=== PATIENT | female | born 1940 | race Caucasian/White ===

== ENCOUNTER 2024-10-18 18:41 | Emergency (ER) | payer MEDICARE, BC ==
[2024-10-18 19:19] LABS: BASOPHILS PERCENT AUTO 0.1 % (0.2-1.2); EOSINOPHILS PERCENT AUTO 0.1 % (0.0-4.0); HEMATOCRIT 39.5 % (33.0-47.0); HEMOGLOBIN 14.2 g/dL (12.0-16.0); IMMATURE GRAN ABSOLUTE AUTO 0.03 x10^3/uL (0.00-0.07); LYMPHOCYTES PERCENT AUTO 10.3 % (25.0-50.0); MEAN CORPUSCULAR HEMOGLOBIN 31.5 pg (26.0-32.0); MEAN CORPUSCULAR HGB CONC 35.9 g/dL (32.0-36.0); MEAN CORPUSCULAR VOLUME 87.6 fL (78.0-93.0); MONOCYTES ABSOLUTE AUTO 0.2 x10^3/uL (0.0-0.8); MONOCYTES PERCENT AUTO 2.2 % (2.0-11.0); NEUTROPHILS ABSOLUTE AUTO 8.2 x10^3/uL (1.8-7.7); PLATELET COUNT,PLT 184 x10^3/uL (130-400); RED BLOOD CELL COUNT 4.51 x10^6/uL (4.00-5.50); WHITE BLOOD CELL COUNT,WBC 9.4 x10^3/uL (4.0-10.0)
[2024-10-18 19:40] LABS: A/G RATIO 0.9; ALBUMIN 3.7 g/dL (3.4-5.0); ANION GAP 12.3 mmol/L (5-15); BILIRUBIN TOTAL 0.5 mg/dL (0.2-1.0); CALCIUM 10.7 mg/dL (8.5-10.1); EST CRCL DRUG DOSING (CG) 29.54 mL/min; POTASSIUM,K 4.3 mmol/L (3.5-5.1); PROTEIN TOTAL,TP 7.8 g/dL (6.4-8.2)
[2024-10-18] MEDS: Sodium Chloride 0.9% 1,000 ML IV ONE (19:56)
[2024-10-18 20:21] VITALS: BP 148/59; PULSE 50
== END 2024-10-18 20:35 | disposition home or self-care (01) ==
LOC: VM.ED 18:41
DX: E87.1 Hypo-osmolality and hyponatremia (principal); E86.0 Dehydration; Z79.82 Long term (current) use of aspirin; Z79.890 Hormone replacement therapy; Z79.899 Other long term (current) drug therapy
CPT/HCPCS: 80053; 85025; 96360; 99284; J7030

== ENCOUNTER 2024-10-19 19:16 | Inpatient (IN) | payer MEDICARE, BC ==
[2024-10-19 19:42] LABS: BASOPHILS PERCENT AUTO 0.1 % (0.2-1.2); EOSINOPHILS PERCENT AUTO 0.3 % (0.0-4.0); HEMATOCRIT 38.2 % (33.0-47.0); HEMOGLOBIN 13.5 g/dL (12.0-16.0); IMMATURE GRAN ABSOLUTE AUTO 0.03 x10^3/uL (0.00-0.07); LYMPHOCYTES ABSOLUTE AUTO 0.9 x10^3/uL (1.0-4.8); LYMPHOCYTES PERCENT AUTO 11.8 % (25.0-50.0); MEAN CORPUSCULAR HEMOGLOBIN 31.2 pg (26.0-32.0); MEAN CORPUSCULAR HGB CONC 35.3 g/dL (32.0-36.0); MEAN CORPUSCULAR VOLUME 88.2 fL (78.0-93.0); MONOCYTES ABSOLUTE AUTO 0.2 x10^3/uL (0.0-0.8); MONOCYTES PERCENT AUTO 2.7 % (2.0-11.0); NEUTROPHILS ABSOLUTE AUTO 6.3 x10^3/uL (1.8-7.7); NEUTROPHILS PERCENT AUTO 84.7 % (50.0-80.0); PLATELET COUNT,PLT 187 x10^3/uL (130-400); RED BLOOD CELL COUNT 4.33 x10^6/uL (4.00-5.50); WHITE BLOOD CELL COUNT,WBC 7.4 x10^3/uL (4.0-10.0)
[2024-10-19 20:04] LABS: A/G RATIO 0.88; ALBUMIN 3.5 g/dL (3.4-5.0); BILIRUBIN TOTAL 0.6 mg/dL (0.2-1.0); CALCIUM 10.1 mg/dL (8.5-10.1); EST CRCL DRUG DOSING (CG) 29.54 mL/min; POTASSIUM,K 4.6 mmol/L (3.5-5.1); PROTEIN TOTAL,TP 7.5 g/dL (6.4-8.2)
[2024-10-19 20:07] LABS: ANION GAP 14.6 mmol/L (5-15)
[2024-10-19 20:08] LABS: LACTIC ACID 1.3 mmol/L (0.4-2.0)
[2024-10-19] MEDS ORDERED: Sodium Chloride 0.9% 10 ML Syringe FLUSH PRN (20:31)
[2024-10-19] MEDS: Sodium Chloride 0.9% 1,000 ML IV SCH (20:50)
[2024-10-19] MEDS ORDERED: Acetaminophen 325 MG Tab PO PRN (22:59)
[2024-10-19] MEDS ORDERED: Ondansetron 4 MG/2 ML SDV IV PRN (22:59)
[2024-10-19] MEDS: Melatonin 3 MG Tab PO PRN (23:32)
[2024-10-20] MEDS: Levothyroxine 50 MCG Tab PO SCH (06:30)
[2024-10-20 06:45] LABS: BILIRUBIN,URINE NEGATIVE (NEGATIVE); COLOR,URINE YELLOW (YELLOW); GLUCOSE,URINE NEGATIVE (NEGATIVE); KETONES,URINE NEGATIVE (NEGATIVE); LEUKOCYTE ESTERASE,URINE TRACE (NEGATIVE); NITRITE,URINE NEGATIVE (NEGATIVE); OCCULT BLOOD,URINE TRACE-INTACT (NEGATIVE); PH,URINE 5.5 (5.0-8.0); PROTEIN,URINE NEGATIVE (NEGATIVE); UROBILINOGEN,URINE 0.2 EU/dL (0.2)
[2024-10-20 06:53] LABS: BASOPHILS PERCENT AUTO 0.2 % (0.2-1.2); EOSINOPHILS PERCENT AUTO 0.5 % (0.0-4.0); HEMATOCRIT 33.4 % (33.0-47.0); HEMOGLOBIN 11.9 g/dL (12.0-16.0); IMMATURE GRAN ABSOLUTE AUTO 0.03 x10^3/uL (0.00-0.07); LYMPHOCYTES ABSOLUTE AUTO 0.8 x10^3/uL (1.0-4.8); LYMPHOCYTES PERCENT AUTO 11.5 % (25.0-50.0); MEAN CORPUSCULAR HEMOGLOBIN 31.1 pg (26.0-32.0); MEAN CORPUSCULAR HGB CONC 35.6 g/dL (32.0-36.0); MEAN CORPUSCULAR VOLUME 87.2 fL (78.0-93.0); MONOCYTES ABSOLUTE AUTO 0.3 x10^3/uL (0.0-0.8); MONOCYTES PERCENT AUTO 4.9 % (2.0-11.0); NEUTROPHILS ABSOLUTE AUTO 5.4 x10^3/uL (1.8-7.7); NEUTROPHILS PERCENT AUTO 82.4 % (50.0-80.0); PLATELET COUNT,PLT 145 x10^3/uL (130-400); RED BLOOD CELL COUNT 3.83 x10^6/uL (4.00-5.50); WHITE BLOOD CELL COUNT,WBC 6.5 x10^3/uL (4.0-10.0)
[2024-10-20 06:58] LABS: APPEARANCE,URINE CLOUDY (CLEAR)
[2024-10-20 07:01] LABS: AMORPHOUS SEDIMENT,URINE FEW; BACTERIA,URINE OCCASIONAL /HPF (NOT SEEN); MUCUS,URINE OCCASIONAL /LPF (NOT SEEN); RBC,URINE 0-5 /HPF (NOT SEEN); SQUAMOUS EPITHELIAL CELLS,UR OCCASIONAL /HPF (NOT SEEN); WBC,URINE 0-5 /HPF (NOT SEEN)
[2024-10-20 07:16] LABS: A/G RATIO 0.94; BILIRUBIN TOTAL 0.6 mg/dL (0.2-1.0); CALCIUM 9.4 mg/dL (8.5-10.1); CREATININE 0.8 mg/dL (0.55-1.02); EST CRCL DRUG DOSING (CG) 36.93 mL/min; POTASSIUM,K 3.9 mmol/L (3.5-5.1); PROTEIN TOTAL,TP 6.2 g/dL (6.4-8.2)
[2024-10-20 07:17] LABS: ANION GAP 11.9 mmol/L (5-15)
[2024-10-20] MEDS: cefTRIAXone 1 GM Vial IVPUSH SCH (09:26)
[2024-10-20] MEDS: Aspirin 81 MG Tab.EC PO SCH (09:29)
[2024-10-20] MEDS: Magnesium Oxide 400 MG Tab PO SCH (09:29)
[2024-10-20] MEDS: atorvaSTATin 10 MG Tab PO SCH (09:29)
[2024-10-20] MEDS: Fluticasone Propionate Nasal Spray 9.9 ML BOTTLE NASBOTH SCH (09:30)
[2024-10-20] MEDS: Lactated Ringers 1,000 ML IV SCH (09:30)
[2024-10-20] MEDS: Enoxaparin 30 MG/0.3 ML Syringe SUBCUT SCH (09:30)
[2024-10-20] MEDS: amLODIPine 10 MG Tab PO SCH (09:30)
[2024-10-20] MEDS: Calcium Carbonate/Vitamin D3 1250 MG-5 MCG Tab PO SCH (09:30)
[2024-10-20] MEDS: Iopamidol 612 MG/ML 30 ML SDV PO ONE (12:52)
[2024-10-20] MEDS: Iopamidol 612 MG/ML 100 ML Bottle IVPUSH ONE (12:52)
[2024-10-20] MEDS: Piperacillin/Tazobactam 4.5 GM in Sodium Chloride 0.9% 100 ML IV ONE (16:30)
[2024-10-20] MEDS: Piperacillin/Tazobactam 4.5 GM in Sodium Chloride 0.9% 100 ML IV SCH (20:18)
[2024-10-21 06:45] LABS: BASOPHILS PERCENT AUTO 0.1 % (0.2-1.2); EOSINOPHILS PERCENT AUTO 0.4 % (0.0-4.0); HEMOGLOBIN 12.5 g/dL (12.0-16.0); IMMATURE GRAN ABSOLUTE AUTO 0.02 x10^3/uL (0.00-0.07); LYMPHOCYTES ABSOLUTE AUTO 0.7 x10^3/uL (1.0-4.8); LYMPHOCYTES PERCENT AUTO 8.6 % (25.0-50.0); MEAN CORPUSCULAR HEMOGLOBIN 30.9 pg (26.0-32.0); MEAN CORPUSCULAR HGB CONC 35.7 g/dL (32.0-36.0); MEAN CORPUSCULAR VOLUME 86.6 fL (78.0-93.0); MONOCYTES ABSOLUTE AUTO 0.5 x10^3/uL (0.0-0.8); MONOCYTES PERCENT AUTO 5.8 % (2.0-11.0); NEUTROPHILS ABSOLUTE AUTO 6.7 x10^3/uL (1.8-7.7); NEUTROPHILS PERCENT AUTO 84.8 % (50.0-80.0); PLATELET COUNT,PLT 139 x10^3/uL (130-400); RED BLOOD CELL COUNT 4.04 x10^6/uL (4.00-5.50); WHITE BLOOD CELL COUNT,WBC 7.9 x10^3/uL (4.0-10.0)
[2024-10-21 07:07] LABS: A/G RATIO 0.83; ALBUMIN 2.9 g/dL (3.4-5.0); BILIRUBIN TOTAL 0.7 mg/dL (0.2-1.0); C-REACTIVE PROTEIN 1.86 mg/dL (<=0.50); CALCIUM 9.3 mg/dL (8.5-10.1); CREATININE 0.9 mg/dL (0.55-1.02); EST CRCL DRUG DOSING (CG) 32.23 mL/min; MAGNESIUM 1.4 mg/dL (1.8-2.4); POTASSIUM,K 3.5 mmol/L (3.5-5.1); PROTEIN TOTAL,TP 6.4 g/dL (6.4-8.2)
[2024-10-21 07:10] LABS: ANION GAP 11.5 mmol/L (5-15)
[2024-10-21] MEDS: Cholecalciferol (Vitamin D3) 25 MCG Tab PO SCH (09:01)
[2024-10-21] MEDS: Calcium Carbonate 1,250 MG/5 ML Susp 5 ML UD Cup PO SCH (09:01)
[2024-10-21] MEDS: Furosemide 20 MG Tab PO SCH (09:02)
[2024-10-21] MEDS: Magnesium Oxide 400 MG Tab PO SCH (09:25)
[2024-10-21 14:33] LABS: URINE SODIUM 103
[2024-10-21 14:35] LABS: URINE CREATININE 48
[2024-10-21] MEDS ORDERED: Hypromellose 0.3% Ophth Soln 15 ML Bottle EYEBOTH PRN (16:55)
[2024-10-21] MEDS: Hypromellose 0.3% Ophth Soln 15 ML Bottle EYEBOTH PRN (17:33)
[2024-10-22 06:53] LABS: EOSINOPHILS ABSOLUTE AUTO 0.1 x10^3/uL (0.0-0.5); EOSINOPHILS PERCENT AUTO 1.4 % (0.0-4.0); HEMATOCRIT 33.8 % (33.0-47.0); HEMOGLOBIN 12.1 g/dL (12.0-16.0); IMMATURE GRAN ABSOLUTE AUTO 0.02 x10^3/uL (0.00-0.07); LYMPHOCYTES ABSOLUTE AUTO 0.7 x10^3/uL (1.0-4.8); LYMPHOCYTES PERCENT AUTO 15.8 % (25.0-50.0); MEAN CORPUSCULAR HEMOGLOBIN 31.3 pg (26.0-32.0); MEAN CORPUSCULAR HGB CONC 35.8 g/dL (32.0-36.0); MEAN CORPUSCULAR VOLUME 87.3 fL (78.0-93.0); MONOCYTES ABSOLUTE AUTO 0.2 x10^3/uL (0.0-0.8); MONOCYTES PERCENT AUTO 5.4 % (2.0-11.0); NEUTROPHILS ABSOLUTE AUTO 3.4 x10^3/uL (1.8-7.7); NEUTROPHILS PERCENT AUTO 76.9 % (50.0-80.0); PLATELET COUNT,PLT 126 x10^3/uL (130-400); RED BLOOD CELL COUNT 3.87 x10^6/uL (4.00-5.50); WHITE BLOOD CELL COUNT,WBC 4.4 x10^3/uL (4.0-10.0)
[2024-10-22 07:14] LABS: A/G RATIO 0.72; ALBUMIN 2.6 g/dL (3.4-5.0); BILIRUBIN TOTAL 0.6 mg/dL (0.2-1.0); C-REACTIVE PROTEIN 2.01 mg/dL (<=0.50); CALCIUM 9.5 mg/dL (8.5-10.1); CREATININE 0.9 mg/dL (0.55-1.02); EST CRCL DRUG DOSING (CG) 32.23 mL/min; MAGNESIUM 1.6 mg/dL (1.8-2.4); POTASSIUM,K 3.1 mmol/L (3.5-5.1); PROTEIN TOTAL,TP 6.2 g/dL (6.4-8.2)
[2024-10-22 07:18] LABS: ANION GAP 9.1 mmol/L (5-15)
[2024-10-22] MEDS: Potassium Bicarbonate/Cit Ac 10 MEQ Effervescent Tab PO SCH (10:51)
[2024-10-22] MEDS: Amoxicillin/Clavulanate K 875-125 MG Tab PO SCH (21:10)
[2024-10-23 07:14] LABS: HEMATOCRIT 34.6 % (33.0-47.0); MEAN CORPUSCULAR HEMOGLOBIN 30.8 pg (26.0-32.0); MEAN CORPUSCULAR HGB CONC 34.7 g/dL (32.0-36.0); MEAN CORPUSCULAR VOLUME 88.9 fL (78.0-93.0); RED BLOOD CELL COUNT 3.89 x10^6/uL (4.00-5.50); WHITE BLOOD CELL COUNT,WBC 5.3 x10^3/uL (4.0-10.0)
[2024-10-23 07:20] LABS: CALCIUM 9.6 mg/dL (8.5-10.1); EST CRCL DRUG DOSING (CG) 29.01 mL/min; POTASSIUM,K 3.6 mmol/L (3.5-5.1)
[2024-10-23 07:22] LABS: ANION GAP 6.6 mmol/L (5-15)
[2024-10-23 15:55] VITALS: BP 135/64; PULSE 71
[2024-10-23] MEDS ORDERED: Potassium Bicarbonate/Cit Ac 10 MEQ Effervescent Tab PO SCH (18:00)
== END 2024-10-23 15:59 | disposition swing bed (61) | DRG 641 ==
LOC: VM.ED 19:16 → VM.MS 21:00
PROVIDERS: ADMIT Internal Medicine; ATTEND Family Medicine
DX: R53.1 Weakness (principal); E87.1 Hypo-osmolality and hyponatremia; R09.A2 Foreign body sensation, throat; N39.0 Urinary tract infection, site not specified; K57.32 Diverticulitis of large intestine without perforation or abscess without bleeding; K86.2 Cyst of pancreas; E86.0 Dehydration; R13.10 Dysphagia, unspecified; E78.00 Pure hypercholesterolemia, unspecified; Z79.890 Hormone replacement therapy; I10 Essential (primary) hypertension; E03.9 Hypothyroidism, unspecified; E66.9 Obesity, unspecified; R00.1 Bradycardia, unspecified; T68.XXXA Hypothermia, initial encounter; R79.89 Other specified abnormal findings of blood chemistry; R62.7 Adult failure to thrive; K59.00 Constipation, unspecified; M48.061 Spinal stenosis, lumbar region without neurogenic claudication; F45.8 Other somatoform disorders; I45.4 Nonspecific intraventricular block; B96.29 Other Escherichia coli [E. coli] as the cause of diseases classified elsewhere; R47.1 Dysarthria and anarthria; R26.89 Other abnormalities of gait and mobility; E87.6 Hypokalemia; E83.42 Hypomagnesemia; Z79.82 Long term (current) use of aspirin; Z79.1 Long term (current) use of non-steroidal anti-inflammatories (NSAID); Z79.899 Other long term (current) drug therapy; Z68.28 Body mass index [BMI] 28.0-28.9, adult; Z79.02 Long term (current) use of antithrombotics/antiplatelets
CPT/HCPCS: 36415; 70450; 80053; 83605; 85025; 87088; 99284; 99285; J7030; 74177; 80048; 81001; 82570; 83690; 83735; 83935; 84300; 84443; 85027; 86140; 87086; 87186; 92526-GN; 92610-GN; 93005; 93010; 97110-GP; 97116-GP; 97162-GP; 97165-GO; 97535-GO; 99223; 99223-GT; 99232; 99232-GT; A9270-GY; J0696; J1650; J2543; J3490; J7120; Q3014; Q9967

== ENCOUNTER 2024-10-23 11:10 | Inpatient (IN) | payer MEDICARE, BC ==
[2024-10-23] MEDS ORDERED: Ondansetron 4 MG/2 ML SDV IV PRN (12:54)
[2024-10-23] MEDS ORDERED: Acetaminophen 325 MG Tab PO PRN (12:54)
[2024-10-23] MEDS ORDERED: Sodium Chloride 0.9% 10 ML Syringe FLUSH PRN (12:54)
[2024-10-23] MEDS: Amoxicillin/Clavulanate K 875-125 MG Tab PO SCH (20:17)
[2024-10-23] MEDS: Potassium Bicarbonate/Cit Ac 10 MEQ Effervescent Tab PO SCH (20:18)
[2024-10-23] MEDS: Magnesium Oxide 400 MG Tab PO SCH (21:15)
[2024-10-23] MEDS: Calcium Carbonate 1,250 MG/5 ML Susp 5 ML UD Cup PO SCH (21:16)
[2024-10-23] MEDS: Fluticasone Propionate Nasal Spray 9.9 ML BOTTLE NASBOTH SCH (21:16)
[2024-10-23] MEDS: Melatonin 3 MG Tab PO PRN (21:17)
[2024-10-24] MEDS: Levothyroxine 50 MCG Tab PO SCH (06:22)
[2024-10-24 07:55] LABS: HEMATOCRIT 35.2 % (33.0-47.0); HEMOGLOBIN 12.1 g/dL (12.0-16.0); MEAN CORPUSCULAR HEMOGLOBIN 30.7 pg (26.0-32.0); MEAN CORPUSCULAR HGB CONC 34.4 g/dL (32.0-36.0); MEAN CORPUSCULAR VOLUME 89.3 fL (78.0-93.0); RED BLOOD CELL COUNT 3.94 x10^6/uL (4.00-5.50); WHITE BLOOD CELL COUNT,WBC 4.3 x10^3/uL (4.0-10.0)
[2024-10-24] MEDS: Enoxaparin 30 MG/0.3 ML Syringe SUBCUT SCH (08:42)
[2024-10-24] MEDS: Hypromellose 0.3% Ophth Soln 15 ML Bottle EYEBOTH PRN (08:44)
[2024-10-24] MEDS: atorvaSTATin 10 MG Tab PO SCH (08:47)
[2024-10-24] MEDS: Furosemide 20 MG Tab PO SCH (08:48)
[2024-10-24] MEDS: Aspirin 81 MG Tab.EC PO SCH (08:49)
[2024-10-24] MEDS: amLODIPine 10 MG Tab PO SCH (08:51)
[2024-10-24] MEDS: Cholecalciferol (Vitamin D3) 25 MCG Tab PO SCH (08:51)
[2024-10-26] MEDS: Lisinopril 5 MG Tab PO SCH (08:53)
[2024-10-27 07:01] LABS: HEMOGLOBIN 12.3 g/dL (12.0-16.0); MEAN CORPUSCULAR HEMOGLOBIN 30.8 pg (26.0-32.0); MEAN CORPUSCULAR HGB CONC 34.2 g/dL (32.0-36.0); MEAN CORPUSCULAR VOLUME 90.2 fL (78.0-93.0); RED BLOOD CELL COUNT 3.99 x10^6/uL (4.00-5.50); WHITE BLOOD CELL COUNT,WBC 3.2 x10^3/uL (4.0-10.0)
[2024-10-27 07:20] LABS: A/G RATIO 0.83; BILIRUBIN TOTAL 0.6 mg/dL (0.2-1.0); CALCIUM 9.8 mg/dL (8.5-10.1); CREATININE 0.8 mg/dL (0.55-1.02); EST CRCL DRUG DOSING (CG) 36.26 mL/min; PROTEIN TOTAL,TP 6.6 g/dL (6.4-8.2)
[2024-10-29] MEDS: Lisinopril 10 MG Tab PO SCH (09:12)
[2024-10-29] MEDS: Clopidogrel 75 MG Tab PO SCH (09:12)
[2024-10-30 06:42] VITALS: PULSE 75
[2024-10-30 07:14] LABS: HEMATOCRIT 32.9 % (33.0-47.0); HEMOGLOBIN 11.2 g/dL (12.0-16.0); MEAN CORPUSCULAR HEMOGLOBIN 30.9 pg (26.0-32.0); MEAN CORPUSCULAR VOLUME 90.6 fL (78.0-93.0); RED BLOOD CELL COUNT 3.63 x10^6/uL (4.00-5.50); WHITE BLOOD CELL COUNT,WBC 3.9 x10^3/uL (4.0-10.0)
[2024-10-30 08:49] VITALS: BP 109/58
== END 2024-10-30 11:30 | disposition home or self-care (01) | DRG 948 ==
LOC: VM.MS 15:59
PROVIDERS: ADMIT Nurse Practitioner Family; ATTEND Family Medicine
DX: R53.1 Weakness (principal); E87.1 Hypo-osmolality and hyponatremia; K57.92 Diverticulitis of intestine, part unspecified, without perforation or abscess without bleeding; K86.2 Cyst of pancreas; E78.00 Pure hypercholesterolemia, unspecified; I10 Essential (primary) hypertension; E03.9 Hypothyroidism, unspecified; E66.9 Obesity, unspecified; E83.42 Hypomagnesemia; R13.10 Dysphagia, unspecified; M48.061 Spinal stenosis, lumbar region without neurogenic claudication; I44.1 Atrioventricular block, second degree; Z79.82 Long term (current) use of aspirin; Z79.899 Other long term (current) drug therapy; Z87.19 Personal history of other diseases of the digestive system; Z68.28 Body mass index [BMI] 28.0-28.9, adult
CPT/HCPCS: 36415; 80053; 83735; 85027; 97110-GP; 97112-GP; 97116-GP; 97164-GP; 97535-GO; A9270-GY; J1650

== ENCOUNTER 2024-12-22 04:07 | Emergency (ER) | payer MEDICARE, BC ==
[2024-12-22] MEDS: Sodium Chloride 0.9% 1,000 ML IV ONE (04:45)
[2024-12-22 07:04] VITALS: BP 131/67; PULSE 54
== END 2024-12-22 06:55 | disposition left against medical advice (07) ==
LOC: VM.ED 04:07
DX: R13.10 Dysphagia, unspecified (principal); T68.XXXA Hypothermia, initial encounter; I10 Essential (primary) hypertension; E78.00 Pure hypercholesterolemia, unspecified; E03.9 Hypothyroidism, unspecified; Z79.82 Long term (current) use of aspirin; Z79.899 Other long term (current) drug therapy; X31.XXXA Exposure to excessive natural cold, initial encounter
CPT/HCPCS: 99283; 99284; J7030